=== PATIENT | male | born 1995 | race Caucasian/White ===

== ENCOUNTER 2016-12-25 22:53 | Emergency (ER) | payer OTHER ==
[~2016-12-25] VITALS: Ht 175.3 cm; Wt 77.1 kg
[2016-12-26] MEDS ORDERED: BENZOIN TINCTURE 60 ML BTL (FLOOR STOCK) TOP ONE ×2 (01:15)
[2016-12-26 01:38] VITALS: BP 121/70
== END 2016-12-26 01:50 | disposition home or self-care (01) ==
LOC: M ED 12-26 00:01
DX: S61.412A Laceration without foreign body of left hand, initial encounter (principal); W26.9XXA Contact with unspecified sharp object(s), initial encounter; Y93.89 Activity, other specified; Y92.009 Unspecified place in unspecified non-institutional (private) residence as the place of occurrence of the external cause; Y99.9 Unspecified external cause status